=== PATIENT | male | born 1935 | race Caucasian/White ===

== ENCOUNTER → 2019-03-06 | Day surgery (SDC) | payer MEDICARE, OTHER ==
[2019-03-05 10:53] LABS: BASOPHILS # (AUTO) 0.1 X10'3 (0-0.2); EOSINOPHILS # (AUTO) 0.1 X10'3 (0-0.9); EOSINOPHILS % (AUTO) 2.1 % (0-6); LYMPHOCYTES # (AUTO) 1.6 X10'3 (1.1-4.8); LYMPHOCYTES % (AUTO) 22.1 % (21-51); MEAN CORPUSCULAR HGB CONC 33.7 g/dL (33.0-36.5); MEAN CORPUSCULAR VOLUME 88.9 FL (78-98); MEAN PLATELET VOLUME 8.3 FL (7.4-10.4); MONOCYTES # (AUTO) 0.5 X10'3 (0-0.9); MONOCYTES % (AUTO) 6.6 % (2-12); NEUTROPHILS # (AUTO) 4.8 X10'3 (1.8-7.7); NEUTROPHILS % (AUTO) 68.2 % (42-75); PRE OP HEMATOCRIT 44.9 % (42.0-52.0); PRE OP HEMOGLOBIN 15.1 g/dL (14.0-17.9); PRE OP PLATELET COUNT 164 X10'3 (140-440); RED BLOOD COUNT 5.05 X10'6 (4.70-6.10); RED CELL DISTRIBUTION WIDTH 14.6 % (11.5-14.5)
[2019-03-05 11:05] LABS: PRE OP PROTIME 15.4 SECONDS (9.0-12.0)
[2019-03-05 11:08] LABS: ALBUMIN 3.7 G/DL (3.4-5.0); ALBUMIN/GLOBULIN RATIO 1.1 (1.1-1.5); ALKALINE PHOSPHATASE 81 IU/L (46-116); BLOOD UREA NITROGEN 26 MG/DL (7-18); BUN/CREATININE RATIO 17.2 (5.4-32.0); CHLORIDE 103 MMOL/L (99-107); CREATININE 1.51 MG/DL (0.60-1.10); PRE OP ALT 25 U/L (30-65); PRE OP ANION GAP 7 (8-16); PRE OP AST 16 U/L (10-37); PRE OP BILIRUB, TOTAL 0.7 MG/DL (0.0-1.0); PRE OP POTASSIUM 4.9 MMOL/L (3.4-5.1); PRE OP SODIUM 138 MMOL/L (135-145); TOTAL CARBON DIOXIDE 27.6 MMOL/L (24-32); TOTAL PROTEIN 7.1 G/DL (6.4-8.2); eGFR 44 ML/MIN
[2019-03-05 11:27] LABS: PRE OP INR 1.5 INR
[2019-03-05 11:28] LABS: PRE OP GLUCOSE 333 MG/DL (70-104)
[2019-03-05 11:49] LABS: HEMOGLOBIN A1C 9.2 % (4.5-6.2)
[~2019-03-06] VITALS: Ht 170.2 cm; Wt 75.8 kg
[2019-03-06] VITALS (7 sets, daily range): BP systolic 129–173; BP diastolic 69–82
[~2019-03-06] MED LIST: CHOL200052 PO; CITA20TA27 PO; COU4T PO; FLO0.4C PO; FURO40TA4 PO; LANTUS SQ; LEVO100T9 PO; LIDOcaine 1% 30ml preserv. free vial ONE; LIRA0.6P2 SQ; MAGN500C16 PO; SIMV10TA98 PO; WARF3TAB56 PO; ceFAZolin 1000mg inj ONE; cefazolin/dext.iso 2gm/100ml 100 ML IV ONE; famotidine 10mg tablet PO ONE; fentaNYL/PF 50MCG/1 ML 2ML syringe ONE; midazolam 2 mg/2 ml injection ONE; propofol inj 20 ML IV ONE; ringers solution, lacted 1,000 ML IV SCH
[2019-03-06 11:05] LABS: PRE OP INR 1.4 INR; PRE OP PROTIME 13.7 SECONDS (9.0-12.0)
--- NOTE | 2019-03-06 13:35 | NUR ---
ADMITTED TO PACU FROM OR ACCOMPANIED BY ANESTHESIA. INTIAL PHYSICAL ASSESSMENT DONE AND RECORDED. REPORT RECEIVED FROM ANESTHESIA.
--- NOTE | 2019-03-06 14:35 | NUR ---
DISCHARGE CRITERIA MET, DISCHARGE INSTRUCTIONS GIVEN, DEMONSTRATES VERBAL UNDERSTANDING. DISCHARGED HOME IN GOOD CONDITION.
== END | disposition home or self-care (01) ==
LOC: PAS 09:41
PROVIDERS: ATTEND Surgery
DX: Z45.010 Encounter for checking and testing of cardiac pacemaker pulse generator [battery] (principal); J44.9 Chronic obstructive pulmonary disease, unspecified; I10 Essential (primary) hypertension; E11.9 Type 2 diabetes mellitus without complications; E03.9 Hypothyroidism, unspecified; N40.0 Benign prostatic hyperplasia without lower urinary tract symptoms; Z88.8 Allergy status to other drugs, medicaments and biological substances; Z91.09 Other allergy status, other than to drugs and biological substances; Z87.891 Personal history of nicotine dependence; Z98.890 Other specified postprocedural states; Z86.73 Personal history of transient ischemic attack (TIA), and cerebral infarction without residual deficits; Z79.899 Other long term (current) drug therapy; Z79.01 Long term (current) use of anticoagulants
CPT/HCPCS: 33228; 36415; 71046; 80053; 82948; 83036; 85025; 85610; 85730; 93005; C1785; J0690; J2001; J2250; J2704; J3010; J7120; A4215; A4565; A4618; A6258; A7000

== ENCOUNTER 2019-03-10 16:36 | Emergency (ER) | payer MEDICARE, OTHER ==
[~2019-03-10] VITALS: Ht 170.2 cm; Wt 77.2 kg
[~2019-03-10 16:36] MED LIST changes: -LIDOcaine 1% 30ml preserv. free vial ONE; -ceFAZolin 1000mg inj ONE; -cefazolin/dext.iso 2gm/100ml 100 ML IV ONE; -famotidine 10mg tablet PO ONE; -fentaNYL/PF 50MCG/1 ML 2ML syringe ONE; -midazolam 2 mg/2 ml injection ONE; -propofol inj 20 ML IV ONE; -ringers solution, lacted 1,000 ML IV SCH
[2019-03-10 22:32] VITALS: BP 144/76
== END 2019-03-10 22:53 | disposition home or self-care (01) ==
LOC: ER 16:36
DX: M79.604 Pain in right leg (principal); I11.0 Hypertensive heart disease with heart failure; I50.9 Heart failure, unspecified; E11.9 Type 2 diabetes mellitus without complications; Z86.73 Personal history of transient ischemic attack (TIA), and cerebral infarction without residual deficits; Z95.0 Presence of cardiac pacemaker; Z79.899 Other long term (current) drug therapy; Z79.01 Long term (current) use of anticoagulants
CPT/HCPCS: 36415; 85610; 93971; 99284